=== PATIENT | male | born 2000 | race Caucasian/White ===

== ENCOUNTER → 2021-05-14 08:22 | Outpatient (CLI) | payer OTHER, MEDICAID, SELFPAY ==
[2021-05-14 09:18] LABS: Hematocrit 48.6 % (41-53); Hemoglobin 16.4 g/dL (13.5-17.5); Mean Corpuscular HGB Conc 33.7 % (30-36); Mean Corpuscular Volume 83.1 fL (80-100); Platelet Count 280 X10^3/uL (150-400); Red Blood Cell Count 5.85 X10^6/uL (4.5-5.9); Red Cell Distribution Width 13.6 % (11.6-14.8); White Blood Cell Count 8.9 X10^3/uL (4.5-11.0)
[2021-05-14 09:33] LABS: Add Manual Diff / Slide Review YES
[2021-05-14 09:50] LABS: Alanine Aminotransferase 38 IU/L (<50); Albumin 4.7 g/dL (3.5-5.0); Albumin Globulin Ratio 1.6 (1.0-2.8); Alkaline Phosphatase 54 U/L (38-126); Aspartate Aminotransferase 25 IU/L (17-59); BUN Creatinine Ratio 23.1 (6-22); Bilirubin Total 0.4 mg/dL (0.2-1.3); Blood Urea Nitrogen 18 mg/dL (9-20); Calcium 9.8 mg/dL (8.4-10.2); Carbon Dioxide 32 mmol/L (22-32); Chloride 100 mmol/L (98-107); Estimated Glomerular Filt Rate > 60.0 mL/min (>60); Globulin 2.9 g/dL (1.7-4.1); Glucose 95 mg/dL (70-100); HEMOLYSIS < 15 (0-50); Potassium 4.5 mmol/L (3.4-5.1); Sodium 140 mmol/L (137-145); Total Protein 7.6 g/dL (6.3-8.2)
[2021-05-14 10:18] LABS: Thyroid Stimulating Hormone 1.14 uIU/mL (0.47-4.68)
[2021-05-14 10:22] LABS: Neutrophils Absolute Manual 5874 /uL (3000-5900); Total Cells Counted 100
[2021-05-14 10:24] LABS: RBC Morphology Normal Morphology
[2021-05-15 04:10] LABS: Valproic Acid (Depakene) Total 85 ug/mL (50-100)
== END ==
PROVIDERS: Referring Provider Psychiatry & Neurology Psychiatry; Visit Provider Psychiatry & Neurology Psychiatry
DX: Z51.81 Encounter for therapeutic drug level monitoring (principal); Z79.899 Other long term (current) drug therapy; F84.0 Autistic disorder; F41.9 Anxiety disorder, unspecified; F90.2 Attention-deficit hyperactivity disorder, combined type; Z63.79 Other stressful life events affecting family and household
CPT/HCPCS: 36415; 80053; 80164; 84443; 85007; 85025; 99214